=== PATIENT | female | born 1965 | race Caucasian/White ===

== ENCOUNTER 2018-10-25 10:27 | Emergency (ER) | payer MEDICARE, MEDICAID ==
[2018-10-25] MEDS ORDERED: DIPH/PERTUSS(ACELL)/TETANUS VAC/PF 0.5 ML SYR (>=10YO) IM ONE (11:10)
[2018-10-25] MEDS ORDERED: ACETAMINOPHEN 325 MG TABLET PO ONE (11:10)
--- NOTE | 2018-10-25 11:16 | ER Document Report ---
ED General - General Chief Complaint: Fall Injury Stated Complaint: FALL/HEAD INJURY Time Seen by Provider: 10/25/18 11:02 Primary Care Provider: MILDRED MORENO MD [COMMUNITY BASED STAFF] - Follow up in 3-5 days (or your primary care. ) Notes: Patient is a 58-year-old female, with cognitive delay that presents to the emergency department for chief complaint of head injury. Patient states that she fell trying to walk to her walker, and lost her balance, she wears braces in her lower extremities, due to cerebral palsy, she landed on her right knee and hit her right face. Denies loss of consciousness. Denies any numbness, tingling or weakness. She has some pain in her face she rates as a 3 out of 10 at this time, and pain in her knee that she also rates as a 3 out of 10, describes both as an aching sensation. Denies blurred or loss of vision. Denies nausea, vomiting, abdominal pain, chest pain, numbness, tingling or weakness or any other symptoms at this time. Past Medical History: Cerebral palsy, hypertension, history of CVA Past Surgical History: Left knee surgery Social History: Denies current tobacco, alcohol or drug use. Family History: Reviewed and noncontributory for presenting illness Allergies: Reviewed, see documented allergy list. REVIEW OF SYSTEMS: Other than noted above, the 12 point review of systems was reviewed with the patient and were negative, all pertinent findings are included in the HPI. PHYSICAL EXAMINATION: Vital signs reviewed, nursing noted reviewed. GENERAL: Well-appearing, well-nourished and in no acute distress. HEAD: There is a superficial abrasion, to the lateral aspect of the right orbit, just lateral to the eyebrow, with some mild swelling and ecchymosis towards the inferior orbital rim, mild tenderness to palpation without step-off or crepitus. EYES: Eyes appear normal, extraocular movements intact, sclera anicteric, conjunctiva are normal. EOMI, PERRLA ENT: nares patent, oropharynx clear without exudates. Moist mucous membranes. NECK: Normal range of motion, supple without lymphadenopathy, no midline tenderness, no paraspinal tenderness LUNGS: Breath sounds clear to auscultation bilaterally and equal. No wheezes rales or rhonchi. HEART: Regular rate and rhythm without murmurs ABDOMEN: Soft, nontender, normoactive bowel sounds. No rebound, guarding, or rigidity. No masses appreciated. EXTREMITIES: Mild tenderness to palpation to the right knee, there is superficial abrasions noted, no effusion appreciated, ultimately there is good range of motion, and no crepitus palpated. Patient has multiple limb braces, secondary to prior strokes. NEUROLOGICAL: No focal neurological deficits. Moves all extremities spontaneously Motor and sensory grossly intact on exam. PSYCH: Normal mood, normal affect. SKIN: Warm, Dry, normal turgor, no rashes or lesions noted on exposed skin TRAVEL OUTSIDE OF THE [place] IN LAST 30 DAYS: No - Related Data Allergies/Adverse Reactions: aspirin Adverse Reaction (Verified 10/25/18 11:12) codeine Adverse Reaction (Verified 10/25/18 11:12) Sulfa (Sulfonamide Antibiotics) Adverse Reaction (Verified 10/25/18 11:12) Past Medical History - Social History Smoking Status: Never Smoker Family History: Reviewed & Not Pertinent Physical Exam - Vital signs Vitals: Temp Pulse Resp BP Pulse Ox 97.4 F 61 16 129/86 H 96 10/25/18 10:34 10/25/18 10:34 10/25/18 10:34 10/25/18 10:34 10/25/18 10:34 Course - Re-evaluation Re-evalutation: Patient seen and examined vital signs reviewed. Patient was treated with Tylenol for pain Results were reviewed when available and demonstrated negative CT imaging of the head, no facial fractures noted either. And x-rays of the knee on the right were negative as well, patient was updated on her tetanus vaccination. The patient was re-evaluated and was stable, Dermabond applied to superficial abrasion/laceration to the right forehead Evaluation was most consistent with closed head injury, facial laceration, knee contusion. Results were discussed with the patient at this point, after careful consideration I feel that that patient can be discharged from the emergency department, the patient was educated treatments and reasons to return to the emergency department based on their presumed diagnosis as noted above, they were advised to followup with a primary care physician in 2-3 days. Patient was agreeable to plan of care. *Note is created using voice recognition software and may contain spelling, syntax or grammatical errors. Head CT 10/25/18 11:10 IMPRESSION: No acute intracranial pathology. Encephalomalacia of the right AUSTYN territory and possibly the left occipital lobe in keeping with prior infarctions. EVIDENCE OF ACUTE STROKE: NO. Knee X-Ray 10/25/18 11:10 IMPRESSION: NEGATIVE STUDY OF THE RIGHT KNEE. NO RADIOGRAPHIC EVIDENCE OF ACUTE INJURY. - Vital Signs Vital signs: Temp Pulse Resp BP Pulse Ox 97.8 F 66 16 126/86 H 97 10/25/18 13:26 10/25/18 13:26 10/25/18 13:26 10/25/18 13:26 10/25/18 13:26 Procedures - Laceration/Wound Repair Right Face Wound length (cm): 1.5 Wound's Depth, Shape: Superficial Wound explored: Clean Wound Repaired With: Dermabond Post-procedure wound care: Sterile dressing applied Complications: No Notes: Patient tolerated well Discharge - Discharge Clinical Impression: Closed head injury Qualifiers: Encounter type: initial encounter Qualified Code(s): S09.90XA - Unspecified injury of head, initial encounter Facial laceration Qualifiers: Encounter type: initial encounter Qualified Code(s): S01.81XA - Laceration without foreign body of other part of head, initial encounter Knee contusion Qualifiers: Encounter type: initial encounter Laterality: right Qualified Code(s): S80.01XA - Contusion of right knee, initial encounter Condition: Stable Disposition: HOME, SELF-CARE Instructions: Head Injury Precautions ([facility]) Additional Instructions: The wound adhesive was placed on her forehead, will dissolve on its own over time, if you notice any signs of infection such as increased swelling or pus drainage, do not hesitate to return to the emergency department sooner. If you develop vomiting or other signs of significant head injury, he should also return to the emergency department. Otherwise please follow-up with the primary care physician. Referrals: MILDRED MORENO MD [COMMUNITY BASED STAFF] - Follow up in 3-5 days (or your primary care. )
--- NOTE | 2018-10-25 11:37 | RADIOLOGY REPORT (SQ) ---
EXAM DESCRIPTION: KNEE RIGHT 4 VIEWS COMPLETED DATE/TIME: 10/25/2018 11:31 am REASON FOR STUDY: right knee injury, pain COMPARISON: None. NUMBER OF VIEWS: Four views. TECHNIQUE: AP, lateral, and both oblique radiographic images acquired of the right knee. LIMITATIONS: None. FINDINGS: MINERALIZATION: Normal. BONES: No acute fracture or dislocation. No worrisome bone lesions. JOINT: No effusion. SOFT TISSUES: No soft tissue swelling. No radio-opaque foreign body. OTHER: No other significant finding. IMPRESSION: NEGATIVE STUDY OF THE RIGHT KNEE. NO RADIOGRAPHIC EVIDENCE OF ACUTE INJURY. TECHNICAL DOCUMENTATION: JOB ID: [id number] [employer]- All Rights Reserved Reading location - IP/workstation name: [email or web address]
--- NOTE | 2018-10-25 11:54 | RADIOLOGY REPORT (SQ) ---
EXAM DESCRIPTION: CT HEAD WITHOUT COMPLETED DATE/TIME: 10/25/2018 11:46 am REASON FOR STUDY: fall, head injury, right face COMPARISON: None. TECHNIQUE: Axial images acquired through the brain without intravenous contrast. Images reviewed wi th bone, brain and subdural windows. Additional sagittal and coronal reconstructions were generated. Images stored on PACS. All CT scanners at this facility use dose modulation, iterative reconstruction, and/or weight based d osing when appropriate to reduce radiation dose to as low as reasonably achievable (ALARA). [facility]: Dose Right [facility]: CareDose [facility]: Dose Right [facility]: Teradose 4D [facility]: [employer] RADIATION DOSE: CT Rad equipment meets quality standard of care and radiation dose reduction techniq ues were employed. CTDIvol: 53.2 mGy. DLP: 991 mGy-cm. mGy. LIMITATIONS: None. FINDINGS: VENTRICLES: Normal size and contour. CEREBRUM: No masses. No hemorrhage. No midline shift. No evidence for acute infarction. There is e ncephalomalacia of the right AUSTYN territory and possibly the left occipital lobe. CEREBELLUM: No masses. No hemorrhage. No alteration of density. No evidence for acute infarction. EXTRAAXIAL SPACES: No fluid collections. No masses. ORBITS AND GLOBE: No intra- or extraconal masses. Normal contour of globe without masses. CALVARIUM: No fracture. PARANASAL SINUSES: No fluid or mucosal thickening. SOFT TISSUES: No mass or hematoma. OTHER: No other significant finding. IMPRESSION: No acute intracranial pathology. Encephalomalacia of the right AUSTYN territory and possib ly the left occipital lobe in keeping with prior infarctions. EVIDENCE OF ACUTE STROKE: NO. COMMENT: Quality ID # [id number]: Final reports with documentation of one or more dose reduction techniques (e.g., Automated exposure control, adjustment of the mA and/or kV according to patient size, use of iterative reconstruction technique) TECHNICAL DOCUMENTATION: JOB ID: [id number] [employer]- All Rights Reserved Reading location - IP/workstation name: [email or web address]
[2018-10-25 13:33] VITALS: BP 126/86
== END 2018-10-25 13:26 | disposition home or self-care (01) ==
LOC: ER 10:27
DX: S01.81XA Laceration without foreign body of other part of head, initial encounter (principal); S80.01XA Contusion of right knee, initial encounter; W19.XXXA Unspecified fall, initial encounter; Y93.01 Activity, walking, marching and hiking; G80.9 Cerebral palsy, unspecified; I10 Essential (primary) hypertension; Z23 Encounter for immunization; G93.89 Other specified disorders of brain; Z86.73 Personal history of transient ischemic attack (TIA), and cerebral infarction without residual deficits
CPT/HCPCS: 99284; 90471; 73564; 70450; 90715; 12011; A9270